=== PATIENT | female | born 1990 | race Caucasian/White ===

== ENCOUNTER 2020-03-09 15:29 | Emergency (ER) | payer SELFPAY ==
--- NOTE | 2020-03-09 16:57 | RAD ---
Radiograph thoracic spine 3 views: 03/09/2020 HISTORY: 30-year-old female with acute, traumatic mid back pain FINDINGS: Vertebral body heights are maintained. Pedicles appear to be grossly intact. No high-grade degenerati ve changes. No high-grade scoliosis. No grossly displaced fracture of visualized posterior aspects of ribs. IMPRESSION: Negative
--- NOTE | 2020-03-09 17:15 | CT ---
Head CT without contrast 03/09/2020: COMPARISON: No comparisons HISTORY: Trauma TECHNIQUE: Axial CT imaging at 5 mm intervals from vertex through skull base without contrast. Joseph l and sagittal reformatted imaging obtained. FINDINGS: No intracranial hemorrhage, midline shift, mass effect, or ventricular enlargement. The visualized paranasal sinuses and mastoid air cells are well-aerated. No displaced calvarial fracture. IMPRESSION: No intracranial hemorrhage or displaced calvarial fracture.
--- NOTE | 2020-03-09 17:21 | CT ---
CT of thefacial bones: 03/09/2020 COMPARISON:None available HISTORY:Trauma, pain TECHNIQUE: Serial axial CT imaging at2.5 mm intervals from thesupraorbital region through the hyoid b one without contrast. Coronal and sagittal reformatted imaging obtained Findings:The imaged brain parenchyma appears grossly unremarkable. The frontal sinuses, maxillary sinuses, ethmoid air cells, sphenoid sinuses, and partially visualized mastoid air cells appear grossly unremarkable. No mandibular fracture or evidence of temporomandibular joint dislocation. The nasal bones, zygomatic arches, and pterygoid plates demonstrate no displaced fracture. The orbital floor and the medial orbital wall appear intact bilaterally. No subcutaneous gas. Impression:No acute osseous abnormality.
--- NOTE | 2020-03-09 17:25 | CT ---
CT of thecervical spine: 03/09/2020 COMPARISON:09/27/2015 HISTORY:Injury, trauma, pain TECHNIQUE: Serial axial CT imaging at2.5 mm intervals from theskull base through lung apices without contrast. Coronal and sagittal reformatted imaging obtained Findings:The imaged lung apices are unremarkable. The C1 ring, craniocervical junction, atlantoaxial interval, and cervicothoracic junction appear jeffrey sly unremarkable. No prevertebral soft tissue swelling. No anterolisthesis or retrolisthesis noted. The occipital condyles, the dens, and the C1-2 articulation appear within normal limits. No displaced fracture or evidence of dislocation is seen. Impression:No acute osseous abnormality.
== END 2020-03-09 17:44 | disposition home or self-care (01) ==
LOC: MADERS 15:29
DX: S16.1XXA Strain of muscle, fascia and tendon at neck level, initial encounter (principal); F41.9 Anxiety disorder, unspecified; F32.9 Major depressive disorder, single episode, unspecified; M54.6 Pain in thoracic spine; F17.210 Nicotine dependence, cigarettes, uncomplicated; Y04.8XXA Assault by other bodily force, initial encounter
CPT/HCPCS: 70450; 70486; 72072; 72125

== ENCOUNTER 2020-04-17 11:13 | Emergency (ER) | payer SELFPAY | END 2020-04-17 12:40 | disposition home or self-care (01) | LOC: MADERS 11:13 | DX: K04.7 Periapical abscess without sinus (principal); K05.00 Acute gingivitis, plaque induced; F41.9 Anxiety disorder, unspecified; F32.9 Major depressive disorder, single episode, unspecified; Z87.891 Personal history of nicotine dependence | CPT/HCPCS: 99282 ==

== ENCOUNTER 2020-10-09 12:26 | Emergency (ER) | payer OTHER ==
[~2020-10-09 12:26] MED LIST: Sodium Chloride 0.9% 1,000 ML BAG ONE
[2020-10-09 13:44] LABS: #Basophils 0.1 thou/uL (0.0-0.2); #Eosinphils 0.2 thou/uL (0.0-0.7); #Lymphocytes 2.8 thou/uL (1.20-3.40); #Monocytes 0.4 thou/uL (0.11-0.59); #Neutrophils 7.9 thou/uL (1.40-6.50); %Basophils 0.8 % (0.0-1.0); %Eosinophils 1.8 % (0.0-10.0); %Lymphocytes 24.8 % (21.0-51.0); %Monocytes 3.2 % (0.0-10.0); %Neutrophils 69.4 % (42.0-75.0); Hemoglobin 12.7 g/dL (12.0-16.0); Mean Corpuscular HGB CONC 31.4 g/dL (32.0-36.0); Mean Corpuscular Hemoglobin 28.2 pg (27.0-31.0); Mean Platelet Volume 8.3 fL (7.4-10.4); Platelet Count 301 thou/uL (130-400); RBC Distribution Width 15.3 % (11.5-14.5); Red Blood Cell (RBC) Count 4.52 mill/uL (4.20-5.40); White Blood Cell (WBC) Count 11.4 thou/uL (4.8-10.8)
[2020-10-09] MEDS ORDERED: Fentanyl 100 MCG/2 ML VIAL ONE (14:01)
== END 2020-10-09 15:15 | disposition short-term general hospital (02) ==
LOC: MADERS 12:26
DX: N93.8 Other specified abnormal uterine and vaginal bleeding (principal); F17.210 Nicotine dependence, cigarettes, uncomplicated
CPT/HCPCS: 36415; 84702; 85025; 86900; 86901; 96374; J3010; J7050

== ENCOUNTER 2021-08-01 20:48 | Emergency (ER) | payer MEDICARE, OTHER ==
[2021-08-01] MEDS ORDERED: Ketorolac Tromethamine 30 MG/ML VIAL ONE (21:14)
[2021-08-01] MEDS ORDERED: Ketorolac Tromethamine 10 MG TAB ONE (21:26)
== END 2021-08-01 21:46 | disposition home or self-care (01) ==
LOC: MADERS 20:48
DX: M54.50 Low back pain, unspecified (principal); F17.210 Nicotine dependence, cigarettes, uncomplicated
CPT/HCPCS: 99283; J1885

== ENCOUNTER 2021-09-08 21:28 | Emergency (ER) | payer MEDICARE, MEDICAID ==
[2021-09-08 22:05] LABS: Bilirubin Negative (Negative); Blood, Urine Moderate (Negative); Clarity Clear (Clear); Glucose, Urine (Dipstick) Negative (Negative); Ketone, Urine Negative (Negative); Leukocyte Negative (Negative); Nitrite Negative (Negative); Protein, Urine (Dipstick) Negative (Neg-Trace); Urobilinogen 0.2 mg/dL (Less than 2); pH, Urine 6.5 (5.0-9.0)
[2021-09-08 22:07] LABS: Specific Gravity, Urine 1.023 (1.002-1.036)
[2021-09-08 22:14] LABS: RBC/HPF 21-50 HPF (0-3); WBC/HPF 0-3 HPF (0-3)
[2021-09-08 22:15] LABS: Bacteria/HPF 2+ HPF (None Seen)
[2021-09-08] MEDS ORDERED: Pantoprazole 40 MG VIAL ONE (22:21)
[2021-09-08] MEDS ORDERED: Sodium Chloride 0.9% 1,000 ML ONE ×2 (22:21→23:50)
[2021-09-08] MEDS ORDERED: Ondansetron PF 4 MG/2 ML Vial ONE ×2 (22:21→22:25)
[2021-09-08] MEDS ORDERED: Ketorolac Tromethamine 30 MG/ML VIAL ONE ×2 (22:21→23:50)
[2021-09-08 22:34] LABS: #Basophils 0.1 thou/uL (0.0-0.2); #Eosinphils 0.4 thou/uL (0.0-0.7); #Lymphocytes 3.2 thou/uL (1.20-3.40); #Monocytes 0.8 thou/uL (0.11-0.59); #Neutrophils 8.7 thou/uL (1.40-6.50); %Eosinophils 2.7 % (0.0-10.0); %Lymphocytes 24.5 % (21.0-51.0); %Monocytes 5.9 % (0.0-10.0); %Neutrophils 65.9 % (42.0-75.0); Hemoglobin 13.8 g/dL (12.0-16.0); Mean Corpuscular HGB CONC 31.1 g/dL (32.0-36.0); Mean Corpuscular Hemoglobin 27.9 pg (27.0-31.0); Mean Corpuscular Volume 89.5 fL (78.0-98.0); Mean Platelet Volume 9.2 fL (7.4-10.4); Platelet Count 341 thou/uL (130-400); RBC Distribution Width 15.8 % (11.5-14.5); Red Blood Cell (RBC) Count 4.94 mill/uL (4.20-5.40); White Blood Cell (WBC) Count 13.2 thou/uL (4.8-10.8)
[2021-09-08 22:44] LABS: BHCG - Serum Negative (NEGATIVE); Pregs Control Background? CLEAR/WHITE (CLR/WHITE); Pregs Control Bar Appear? YES (CONTROL BAR)
[2021-09-08 22:53] LABS: ALT (SGPT) 22 U/L (8-55); AST (SGOT) 18 U/L (5-34); Albumin 4.4 g/dL (3.5-5.0); Alkaline Phosphatase 73 U/L (40-110); Anion Gap 15 mmol/L (10-20); BUN (Urea Nitrogen) 9 mg/dL (7.0-18.7); Bilirubin, Total 0.3 mg/dL (0.2-1.2); CK (CPK) 78 U/L (29-168); CRP (Inflammatory) Less than 0.50 mg/dL (= or < 0.5); Calc. Creatinine Clearance 0 mL/min (70-130); Calcium 9.5 mg/dL (7.8-10.44); Carbon Dioxide 23 mmol/L (22-29); Chloride 103 mmol/L (98-107); Globulin 3.3 g/dL (2.4-3.5); Glucose 91 mg/dL (70-105); Potassium 3.4 mmol/L (3.5-5.1); Protein, Total 7.7 g/dL (6.0-8.3); Sodium 138 mmol/L (136-145)
[2021-09-08] MEDS ORDERED: Piperacillin/Tazobactam 3.375 GM VIAL ONE (23:50)
[2021-09-08] MEDS ORDERED: Sodium Chloride 0.9% 100 ML ONE (23:51)
[2021-09-09 00:51] LABS: SARS-CoV-2 NAA Rapid Test Not Detected (NotDetected)
[2021-09-09] MEDS ORDERED: Morphine 4 MG/ML VIAL ONE ×4 (00:51→16:50)
[2021-09-09] MEDS ORDERED: Piperacillin/Tazobactam 3.375 GM VIAL ONE (07:26)
[2021-09-09] MEDS ORDERED: Sodium Chloride 0.9% 1,000 ML ONE (07:26)
[2021-09-09] MEDS ORDERED: Sodium Chloride 0.9% 100 ML ONE (07:27)
[2021-09-09 07:56] LABS: #Basophils 0.1 thou/uL (0.0-0.2); #Eosinphils 0.3 thou/uL (0.0-0.7); #Lymphocytes 3.2 thou/uL (1.20-3.40); #Monocytes 0.8 thou/uL (0.11-0.59); #Neutrophils 6.1 thou/uL (1.40-6.50); %Lymphocytes 30.1 % (21.0-51.0); Hemoglobin 11.3 g/dL (12.0-16.0); Mean Corpuscular HGB CONC 30.8 g/dL (32.0-36.0); Mean Corpuscular Hemoglobin 27.8 pg (27.0-31.0); Mean Corpuscular Volume 90.2 fL (78.0-98.0); Mean Platelet Volume 9.3 fL (7.4-10.4); Platelet Count 260 thou/uL (130-400); RBC Distribution Width 15.6 % (11.5-14.5); Red Blood Cell (RBC) Count 4.07 mill/uL (4.20-5.40); White Blood Cell (WBC) Count 10.5 thou/uL (4.8-10.8)
[2021-09-09 08:05] LABS: Anion Gap 10 mmol/L (10-20)
[2021-09-09 08:35] LABS: BUN (Urea Nitrogen) 6 mg/dL (7.0-18.7); Bilirubin, Total 0.4 mg/dL (0.2-1.2); Calc. Creatinine Clearance 0 mL/min (70-130); Calcium 8.1 mg/dL (7.8-10.44); Carbon Dioxide 22 mmol/L (22-29); Chloride 114 mmol/L (98-107); Glucose 88 mg/dL (70-105); Potassium 3.9 mmol/L (3.5-5.1); Protein, Total 5.7 g/dL (6.0-8.3); Sodium 142 mmol/L (136-145)
[2021-09-09 08:36] LABS: ALT (SGPT) 63 U/L (8-55); AST (SGOT) 98 U/L (5-34); Albumin 3.4 g/dL (3.5-5.0); Alkaline Phosphatase 59 U/L (40-110); Globulin 2.3 g/dL (2.4-3.5)
== END 2021-09-09 19:10 | disposition short-term general hospital (02) ==
LOC: MADERS 21:28
DX: K80.00 Calculus of gallbladder with acute cholecystitis without obstruction (principal); Z20.822 Contact with and (suspected) exposure to COVID-19; F17.210 Nicotine dependence, cigarettes, uncomplicated
CPT/HCPCS: 71045; 74177; 80053; 81003; 81015; 82150; 82550; 83690; 84703; 85025; 86140; 96365; 96375; 96376; C9113; J1885; J2270; J2405; J2543; J3490; J7050; U0002